=== PATIENT | male | born 1945 | race Caucasian/White ===

== ENCOUNTER 2022-05-26 07:56 | Day surgery (SDC) | payer MEDICARE, BC ==
[~2022-05-26] VITALS: Ht 167.6 cm; Wt 100.6 kg
[2022-05-26] VITALS (9 sets, daily range): BP systolic 155–177; BP diastolic 65–90
[2022-05-26] MEDS ORDERED: normal saline 1,000 ML IV SCH (08:20)
[2022-05-26] MEDS ORDERED: diphenhydrAMINE 25mg capsule PO PRN (08:20)
[2022-05-26 08:53] LABS: BASOPHILS % (AUTO) 0.6 % (0-1); EOSINOPHILS # (AUTO) 0.2 X10'3 (0-0.9); EOSINOPHILS % (AUTO) 2.9 % (0-6); HEMATOCRIT 36.4 % (42.0-52.0); HEMOGLOBIN 12.6 g/dl (14.0-17.9); LYMPHOCYTES % (AUTO) 33.4 % (21-51); MEAN CORPUSCULAR HEMOGLOBIN 33.5 PG (27.0-31.0); MEAN CORPUSCULAR HGB CONC 34.7 g/dL (33.0-36.5); MEAN CORPUSCULAR VOLUME 96.6 FL (78-98); MEAN PLATELET VOLUME 8.7 FL (7.4-10.4); MONOCYTES # (AUTO) 0.6 X10'3 (0-0.9); MONOCYTES % (AUTO) 9.8 % (2-12); NEUTROPHILS # (AUTO) 3.2 X10'3 (1.8-7.7); NEUTROPHILS % (AUTO) 53.3 % (42-75); PLATELET COUNT 211 X10'3 (140-440); RED BLOOD COUNT 3.77 X10'6 (4.70-6.10); RED CELL DISTRIBUTION WIDTH 13.5 % (11.5-14.5); WHITE BLOOD COUNT 5.9 X10'3 (4.5-11.0)
[2022-05-26 08:59] LABS: ALBUMIN 3.4 G/DL (3.4-5.0); ANION GAP 10 (8-16); BLOOD UREA NITROGEN 21 MG/DL (7-18); BUN/CREATININE RATIO 15.1 (5.4-32.0); CALCIUM 8.4 MG/DL (8.5-10.1); CHLORIDE 105 MMOL/L (99-107); CREATININE 1.39 MG/DL (0.60-1.10); GLUCOSE 96 MG/DL (70-104); MAGNESIUM 1.8 MG/DL (1.5-2.4); POTASSIUM 4.9 MMOL/L (3.5-5.1); SODIUM 140 MMOL/L (135-145); TOTAL CARBON DIOXIDE 25.3 MMOL/L (24-32); eGFR 50 ML/MIN
[2022-05-26] MEDS ORDERED: PANT40TA54 PO (09:07)
[2022-05-26] MEDS ORDERED: NIFE-34 PO (09:07)
[2022-05-26] MEDS ORDERED: ROSU10TA28 PO (09:07)
[2022-05-26] MEDS ORDERED: ASPI81TA52 PO (09:07)
[2022-05-26] MEDS ORDERED: LOSA50TA64 PO (09:07)
[2022-05-26] MEDS ORDERED: METO25TA6 PO (09:07)
[2022-05-26] MEDS ORDERED: fentaNYL/PF 50MCG/1 ML 2ML syringe ONE (11:18)
[2022-05-26] MEDS ORDERED: midazolam 1 mg/ML 2ml injection ONE (11:18)
[2022-05-26] MEDS ORDERED: iohexol 350MG/ML 100ml bottle IV ONE (11:19)
[2022-05-26] MEDS ORDERED: heparin 1,000unit/ml 10ml vial 10 ML ONE (11:19)
[2022-05-26] MEDS ORDERED: clopidogrel 300mg tablet ONE (12:36)
[2022-05-26] MEDS ORDERED: normal saline 1000ml 1,000 ML IV SCH (13:20)
[2022-05-26] MEDS ORDERED: HYDROcodone/acetaminophen 5mg/325mg tablet PO PRN (13:20)
[2022-05-26] MEDS ORDERED: proCHLORperazine 10 MG/2 ml inj IV PRN (13:20)
[2022-05-26] MEDS ORDERED: HYDROcodone/acetaminophen 10/325mg tab PO PRN (13:20)
[2022-05-26] MEDS ORDERED: ondansetron/PF 4mg/2ml inj IV PRN (13:20)
== END 2022-05-26 16:50 | disposition home or self-care (01) ==
LOC: SSTAY O 07:56
PROVIDERS: ATTEND Internal Medicine Cardiovascular Disease
DX: I70.212 Atherosclerosis of native arteries of extremities with intermittent claudication, left leg (principal); E78.5 Hyperlipidemia, unspecified; I10 Essential (primary) hypertension; K21.9 Gastro-esophageal reflux disease without esophagitis; C61 Malignant neoplasm of prostate; Z79.899 Other long term (current) drug therapy; I25.118 Atherosclerotic heart disease of native coronary artery with other forms of angina pectoris; Z95.5 Presence of coronary angioplasty implant and graft; Z98.890 Other specified postprocedural states
CPT/HCPCS: 36415; 37226; 75716; 80048; 83735; 85025; 85610; 93005; 99152; 99153; C1725; C1760; C1769; C1876; C1894; C2623; J1644; J2250; J3010; J7030; Q0163; Q9967; 36245; 36247; A4620; A6258

== ENCOUNTER 2022-06-02 06:06 | Day surgery (SDC) | payer MEDICARE, BC ==
[2022-06-02] VITALS (8 sets, daily range): BP systolic 133–143; BP diastolic 63–74
[~2022-06-02] VITALS: Ht 167.6 cm; Wt 98.3 kg
[~2022-06-02 06:06] MED LIST: ASPI81TA52 PO; LOSA50TA64 PO; METO25TA6 PO; NIFE-34 PO; PANT40TA54 PO; ROSU10TA28 PO
[2022-06-02] MEDS ORDERED: CLOP75TA33 PO (06:19)
[2022-06-02] MEDS ORDERED: normal saline 1,000 ML IV SCH (06:40)
[2022-06-02] MEDS ORDERED: diphenhydrAMINE 25mg capsule PO PRN (06:40)
[2022-06-02 07:39] LABS: BASOPHILS # (AUTO) 0.1 X10'3 (0-0.2); EOSINOPHILS # (AUTO) 0.3 X10'3 (0-0.9); EOSINOPHILS % (AUTO) 5.6 % (0-6); HEMATOCRIT 35.2 % (42.0-52.0); LYMPHOCYTES # (AUTO) 1.8 X10'3 (1.1-4.8); MEAN CORPUSCULAR HGB CONC 34.2 g/dL (33.0-36.5); MEAN CORPUSCULAR VOLUME 96.3 FL (78-98); MEAN PLATELET VOLUME 8.4 FL (7.4-10.4); MONOCYTES # (AUTO) 0.5 X10'3 (0-0.9); MONOCYTES % (AUTO) 10.2 % (2-12); NEUTROPHILS # (AUTO) 2.6 X10'3 (1.8-7.7); NEUTROPHILS % (AUTO) 49.2 % (42-75); PLATELET COUNT 198 X10'3 (140-440); RED BLOOD COUNT 3.65 X10'6 (4.70-6.10); RED CELL DISTRIBUTION WIDTH 13.3 % (11.5-14.5); WHITE BLOOD COUNT 5.2 X10'3 (4.5-11.0)
[2022-06-02 07:50] LABS: ALBUMIN 3.4 G/DL (3.4-5.0); ANION GAP 10 (8-16); BLOOD UREA NITROGEN 21 MG/DL (7-18); BUN/CREATININE RATIO 14.5 (5.4-32.0); CALCIUM 8.6 MG/DL (8.5-10.1); CHLORIDE 107 MMOL/L (99-107); CREATININE 1.45 MG/DL (0.60-1.10); GLUCOSE 101 MG/DL (70-104); MAGNESIUM 1.7 MG/DL (1.5-2.4); POTASSIUM 4.2 MMOL/L (3.5-5.1); SODIUM 142 MMOL/L (135-145); TOTAL CARBON DIOXIDE 24.7 MMOL/L (24-32); eGFR 47 ML/MIN
[2022-06-02] MEDS ORDERED: sodium bicarbonate (8.4%) inj. 150 ML in dextrose 5%-water 1,000 ML IV ONE (08:10)
--- NOTE | 2022-06-02 08:30 | NUR ---
Pt appears to be resting comfortably, eyes closed, respirations even. VS stable as charted.
[2022-06-02] MEDS ORDERED: iohexol 350MG/ML 100ml bottle IV ONE ×3 (08:50→10:59)
[2022-06-02] MEDS ORDERED: heparin 1,000unit/ml 10ml vial 10 ML ONE (08:50)
[2022-06-02] MEDS ORDERED: midazolam 1 mg/ML 2ml injection ONE ×4 (08:50→10:59)
[2022-06-02] MEDS ORDERED: fentaNYL/PF 50MCG/1 ML 2ML syringe ONE (08:50)
--- NOTE | 2022-06-02 08:52 | NUR ---
Problems reprioritized. Patient report given, questions answered & plan of care reviewed with Jaymie LUO.
[2022-06-02] MEDS ORDERED: LIDOcaine 1% 30ml preserv. free vial ONE (09:18)
[2022-06-02] MEDS ORDERED: proCHLORperazine 10 MG/2 ml inj IV PRN (11:45)
[2022-06-02] MEDS ORDERED: HYDROcodone/acetaminophen 5mg/325mg tablet PO PRN (11:45)
[2022-06-02] MEDS ORDERED: HYDROcodone/acetaminophen 10/325mg tab PO PRN (11:45)
[2022-06-02] MEDS ORDERED: normal saline 1000ml 1,000 ML IV SCH (11:45)
[2022-06-02] MEDS ORDERED: acetaminophen 325mg tablet PO PRN (11:45)
[2022-06-02] MEDS ORDERED: ondansetron/PF 4mg/2ml inj IV PRN (11:45)
--- NOTE | 2022-06-02 14:15 | NUR ---
Written and verbal DC instructions given to pt and daughter, both verbalize understanding. Pt stood at bedside, stable on feet. Pt amb in hallway, right groin site stable, no bleeding, bruising or hematoma noted. PIV DC cath intact, VSS no c/o pain. Pt able to dress self steady on feet.
--- NOTE | 2022-06-02 14:45 | NUR ---
DC to home with daughter, Transferred to private car via WC, pt able to transfer self to car.
== END 2022-06-02 14:45 | disposition home or self-care (01) ==
LOC: SSTAY O 06:06
PROVIDERS: ATTEND Internal Medicine Cardiovascular Disease
DX: I70.211 Atherosclerosis of native arteries of extremities with intermittent claudication, right leg (principal); E78.5 Hyperlipidemia, unspecified; I25.118 Atherosclerotic heart disease of native coronary artery with other forms of angina pectoris; C61 Malignant neoplasm of prostate; I10 Essential (primary) hypertension; K21.9 Gastro-esophageal reflux disease without esophagitis; Z79.899 Other long term (current) drug therapy; Z79.82 Long term (current) use of aspirin; Z87.891 Personal history of nicotine dependence; Z98.890 Other specified postprocedural states
CPT/HCPCS: 36415; 37224; 80048; 83735; 85025; 85610; 93005; 99152; 99153; C1725; C1760; C1769; C1887; C1892; C1894; J1644; J2250; J3010; J3490; J7030; J7070; Q0163; Q9967; 92920; A4620; A6258

== ENCOUNTER 2022-06-20 06:29 | Day surgery (SDC) | payer MEDICARE, BC ==
[~2022-06-20] VITALS: Ht 167.6 cm; Wt 100.2 kg
[2022-06-20] VITALS (10 sets, daily range): BP systolic 128–159; BP diastolic 52–67
[~2022-06-20 06:29] MED LIST changes: +CLOP75TA33 PO
[2022-06-20 07:40] LABS: BASOPHILS # (AUTO) 0.1 X10'3 (0-0.2); EOSINOPHILS # (AUTO) 0.3 X10'3 (0-0.9); EOSINOPHILS % (AUTO) 4.9 % (0-6); HEMOGLOBIN 12.3 g/dl (14.0-17.9); LYMPHOCYTES # (AUTO) 1.7 X10'3 (1.1-4.8); LYMPHOCYTES % (AUTO) 27.5 % (21-51); MEAN CORPUSCULAR HEMOGLOBIN 33.4 PG (27.0-31.0); MEAN CORPUSCULAR HGB CONC 34.2 g/dL (33.0-36.5); MEAN CORPUSCULAR VOLUME 97.5 FL (78-98); MEAN PLATELET VOLUME 8.5 FL (7.4-10.4); MONOCYTES # (AUTO) 0.6 X10'3 (0-0.9); MONOCYTES % (AUTO) 9.1 % (2-12); NEUTROPHILS # (AUTO) 3.6 X10'3 (1.8-7.7); NEUTROPHILS % (AUTO) 57.5 % (42-75); PLATELET COUNT 261 X10'3 (140-440); RED BLOOD COUNT 3.69 X10'6 (4.70-6.10); RED CELL DISTRIBUTION WIDTH 13.9 % (11.5-14.5); WHITE BLOOD COUNT 6.2 X10'3 (4.5-11.0)
[2022-06-20] MEDS ORDERED: normal saline 1,000 ML IV SCH (07:50)
[2022-06-20] MEDS ORDERED: diphenhydrAMINE 25mg capsule PO PRN (07:50)
[2022-06-20 07:57] LABS: ALBUMIN 3.8 G/DL (3.4-5.0); ANION GAP 11 (8-16); BLOOD UREA NITROGEN 22 MG/DL (7-18); BUN/CREATININE RATIO 14.6 (5.4-32.0); CALCIUM 8.9 MG/DL (8.5-10.1); CHLORIDE 106 MMOL/L (99-107); CREATININE 1.51 MG/DL (0.60-1.10); GLUCOSE 95 MG/DL (70-104); MAGNESIUM 1.7 MG/DL (1.5-2.4); POTASSIUM 4.7 MMOL/L (3.5-5.1); SODIUM 143 MMOL/L (135-145); TOTAL CARBON DIOXIDE 25.8 MMOL/L (24-32); eGFR 45 ML/MIN
[2022-06-20] MEDS ORDERED: iohexol 350MG/ML 100ml bottle IV ONE (08:37)
[2022-06-20] MEDS ORDERED: midazolam 1 mg/ML 2ml injection ONE ×2 (08:37→09:26)
[2022-06-20] MEDS ORDERED: heparin 1,000unit/ml 10ml vial 10 ML ONE (08:37)
[2022-06-20] MEDS ORDERED: fentaNYL/PF 50MCG/1 ML 2ML syringe ONE ×2 (08:37→09:44)
[2022-06-20] MEDS ORDERED: LIDOcaine 1% 30ml preserv. free vial ONE (08:37)
[2022-06-20] MEDS ORDERED: sodium bicarbonate (8.4%) inj. 150 ML in dextrose 5%-water 1,000 ML IV ONE (09:15)
--- NOTE | 2022-06-20 09:15 | NUR ---
Pt leaving unit for procedure. Attending nurse, Sasha RN received Na Bi[employer] gtt as pt was leaving unit, med to be started in the label operator. Pt left with appropriate tubing and solution.
[2022-06-20] MEDS ORDERED: clopidogrel 300mg tablet ONE (10:45)
--- NOTE | 2022-06-20 11:00 | NUR ---
Pts fluids infusing as ordered upon arrival.
[2022-06-20] MEDS ORDERED: HYDROcodone/acetaminophen 5mg/325mg tablet PO PRN (11:20)
[2022-06-20] MEDS ORDERED: HYDROcodone/acetaminophen 10/325mg tab PO PRN (11:20)
[2022-06-20] MEDS ORDERED: ondansetron/PF 4mg/2ml inj IV PRN (11:20)
[2022-06-20] MEDS ORDERED: proCHLORperazine 10 MG/2 ml inj IV PRN (11:20)
[2022-06-20] MEDS ORDERED: normal saline 1000ml 1,000 ML IV SCH (11:20)
--- NOTE | 2022-06-20 11:44 | NUR ---
Spoke with son as per pt request. Son states he will be able to supervisor picking crew pt at 1600 and will be outside.
--- NOTE | 2022-06-20 13:20 | NUR ---
Pt ate 100% of breakfast tray. 450ml oral fluid intake. Pt site stable. Drsg CD&I, no s/s of bleeding or infection. Pt is laying supine in bed, watching TV. Denies pain.
--- NOTE | 2022-06-20 15:12 | NUR ---
Pt has had 50ml clear, yellow void. Pt states he feels like "I still need to go". Pt refuses straight cath at this time. States, "I can wait until I can walk to the bathroom." Addendum: 06/20/22 at 1514 by Leidy Lowe RN Pt does have urinal at the bedside.
== END 2022-06-20 16:00 | disposition home or self-care (01) ==
LOC: SSTAY O 06:29
PROVIDERS: ATTEND Internal Medicine Cardiovascular Disease
DX: I70.222 Atherosclerosis of native arteries of extremities with rest pain, left leg (principal); E78.5 Hyperlipidemia, unspecified; Z79.899 Other long term (current) drug therapy; Z98.890 Other specified postprocedural states; I25.118 Atherosclerotic heart disease of native coronary artery with other forms of angina pectoris; I10 Essential (primary) hypertension; K21.9 Gastro-esophageal reflux disease without esophagitis; C61 Malignant neoplasm of prostate; Z86.73 Personal history of transient ischemic attack (TIA), and cerebral infarction without residual deficits; Z82.49 Family history of ischemic heart disease and other diseases of the circulatory system; Z82.3 Family history of stroke
CPT/HCPCS: 36415; 37226; 75710; 80048; 83735; 85025; 85610; 93005; 99152; 99153; C1725; C1760; C1769; C1876; C1894; C2623; J1644; J2250; J3010; J3490; J7030; Q0163; Q9967; A4620; A4663; A6258

== ENCOUNTER 2024-09-19 09:33 | Day surgery (SDC) | payer MEDICARE, BC ==
[2024-09-19] VITALS (9 sets, daily range): BP systolic 130–163; BP diastolic 45–79; PULSE 48–62; RESP 10–12; TEMP 98.2; O2SAT 96–99
[~2024-09-19] VITALS: Ht 170.2 cm; Wt 96.6 kg
[~2024-09-19 09:33] MED LIST changes: -ROSU10TA28 PO; +ROSU10TA72 PO
[2024-09-19 10:39] LABS: BASOPHILS # (AUTO) 0.1 X10'3 (0-0.2); BASOPHILS % (AUTO) 1.2 % (0-1); EOSINOPHILS # (AUTO) 0.3 X10'3 (0-0.9); EOSINOPHILS % (AUTO) 4.2 % (0-6); HEMATOCRIT 42.1 % (42.0-52.0); HEMOGLOBIN 14.2 g/dl (14.0-17.9); LYMPHOCYTES # (AUTO) 1.7 X10'3 (1.1-4.8); LYMPHOCYTES % (AUTO) 28.5 % (21-51); MEAN CORPUSCULAR HEMOGLOBIN 33.1 PG (27.0-31.0); MEAN CORPUSCULAR HGB CONC 33.7 g/dL (33.0-36.5); MEAN CORPUSCULAR VOLUME 98.4 FL (78-98); MONOCYTES # (AUTO) 0.5 X10'3 (0-0.9); MONOCYTES % (AUTO) 8.7 % (2-12); NEUTROPHILS # (AUTO) 3.5 X10'3 (1.8-7.7); NEUTROPHILS % (AUTO) 57.4 % (42-75); PLATELET COUNT 254 X10'3 (140-440); RED BLOOD COUNT 4.28 X10'6 (4.70-6.10); RED CELL DISTRIBUTION WIDTH 13.4 % (11.5-14.5)
[2024-09-19] MEDS ORDERED: ROSU20TA98 PO (10:40)
[2024-09-19 10:55] LABS: ALBUMIN 3.9 G/DL (3.4-5.0); ANION GAP 10 (8-16); BLOOD UREA NITROGEN 25 MG/DL (7-18); BUN/CREATININE RATIO 18.4 (10.0-20.0); CALCIUM 9.1 MG/DL (8.5-10.1); CHLORIDE 105 MMOL/L (99-107); CREATININE 1.36 MG/DL (0.60-1.10); GLUCOSE 87 MG/DL (70-104); MAGNESIUM 2.2 MG/DL (1.5-2.4); POTASSIUM 4.6 MMOL/L (3.5-5.1); SODIUM 142 MMOL/L (135-145); TOTAL CARBON DIOXIDE 27.3 MMOL/L (24-32); eGFR 50 ML/MIN
[2024-09-19 11:30] LABS: PROTHROMBIN TIME 10.8 SECONDS (9.0-12.0)
[2024-09-19] MEDS: diphenhydrAMINE 25mg capsule PO PRN (11:51)
[2024-09-19] MEDS: sodium bicarbonate 1meq/ml syr 150 ML in dextrose 5%-water 1,000 ML IV ONE (11:51)
[2024-09-19] MEDS: normal saline 1,000 ML IV SCH (11:52)
[2024-09-19] MEDS ORDERED: LIDOcaine 1% 30ml preserv. free vial ONE (14:33)
[2024-09-19] MEDS ORDERED: midazolam 1 mg/ML 2ml injection ONE ×2 (14:33→15:46)
[2024-09-19] MEDS ORDERED: heparin 1,000unit/ml 10ml vial 10 ML ONE (14:33)
[2024-09-19] MEDS ORDERED: iohexol 350MG/ML 100ml bottle IV ONE (14:33)
[2024-09-19] MEDS ORDERED: fentaNYL/PF 50MCG/1 ML 2ML syringe ONE ×2 (14:33→15:46)
[2024-09-19] MEDS ORDERED: ondansetron/PF 4mg/2ml inj IV PRN (17:00)
[2024-09-19] MEDS ORDERED: HYDROcodone/acetaminophen 5mg/325mg tablet PO PRN (17:00)
[2024-09-19] MEDS ORDERED: HYDROcodone/acetaminophen 10/325mg tab PO PRN (17:00)
[2024-09-19] MEDS ORDERED: proCHLORperazine 10 MG/2 ml inj IV PRN (17:00)
== END 2024-09-19 19:25 | disposition home or self-care (01) ==
LOC: SSTAY O 09:33
PROVIDERS: ATTEND Internal Medicine Cardiovascular Disease
DX: I70.213 Atherosclerosis of native arteries of extremities with intermittent claudication, bilateral legs (principal); I25.2 Old myocardial infarction; R94.31 Abnormal electrocardiogram [ECG] [EKG]; I25.118 Atherosclerotic heart disease of native coronary artery with other forms of angina pectoris; I10 Essential (primary) hypertension; E78.5 Hyperlipidemia, unspecified; K21.9 Gastro-esophageal reflux disease without esophagitis; Z87.891 Personal history of nicotine dependence; Z85.46 Personal history of malignant neoplasm of prostate; Z95.5 Presence of coronary angioplasty implant and graft
CPT/HCPCS: 36247; 36415; 75716; 80048; 83735; 85025; 85610; 93005; A6258; C1769; C1894; J1644; J2003; J2250; J3010; J3490; J7030; J7070; Q0163; Q9967; Z7610; 75630; 99152; 99153

== ENCOUNTER 2025-04-28 07:58 | Day surgery (SDC) | payer MEDICARE, BC ==
[2025-04-28] VITALS (12 sets, daily range): BP systolic 114–149; BP diastolic 57–67; PULSE 48–56; RESP 10–14; TEMP 96.8; O2SAT 95–99
[~2025-04-28] VITALS: Ht 167.6 cm; Wt 97.5 kg
[~2025-04-28 07:58] MED LIST changes: -ROSU10TA72 PO; +ROSU20TA98 PO
--- NOTE | 2025-04-28 08:39 | ELECTROCARDIOGRAPH REPORT ---
[facility] Test Date: 2025-04-28 Test Time: 08:37:32 Pat Name: ARAM THEODORE Department: PSYCHIATRIC-SSTAY O Room: Gender: M Palliative Care Nurse: SS : 1945 Requested By: HILARIA BRYAN Order Number: [id number] Reading MD: Dr. SHELIA Flores Measurements Intervals Bronson Rate: 55 P: -78 IA: 364 QRS: 1 QRSD: 98 T: 37 QT: 438 QTc: 419 Interpretive Statements Sinus or ectopic atrial rhythm Prolonged IA interval Electronically Signed On 04-28-2025 13:45:[address] SHELIA Flores Please click the below link to view image of tracing.
[2025-04-28 09:00] LABS: BASOPHILS # (AUTO) 0.1 X10'3 (0-0.2); EOSINOPHILS # (AUTO) 0.3 X10'3 (0-0.9); EOSINOPHILS % (AUTO) 4.6 % (0-6); HEMATOCRIT 38.3 % (42.0-52.0); HEMOGLOBIN 13.1 g/dl (14.0-17.9); LYMPHOCYTES # (AUTO) 1.9 X10'3 (1.1-4.8); LYMPHOCYTES % (AUTO) 32.8 % (21-51); MEAN CORPUSCULAR HEMOGLOBIN 32.7 PG (27.0-31.0); MEAN CORPUSCULAR HGB CONC 34.1 g/dL (33.0-36.5); MEAN CORPUSCULAR VOLUME 95.9 FL (78-98); MEAN PLATELET VOLUME 8.6 FL (7.4-10.4); MONOCYTES # (AUTO) 0.6 X10'3 (0-0.9); MONOCYTES % (AUTO) 11.1 % (2-12); NEUTROPHILS # (AUTO) 2.9 X10'3 (1.8-7.7); NEUTROPHILS % (AUTO) 50.5 % (42-75); PLATELET COUNT 176 X10'3 (140-440); RED BLOOD COUNT 3.99 X10'6 (4.70-6.10); RED CELL DISTRIBUTION WIDTH 13.3 % (11.5-14.5); WHITE BLOOD COUNT 5.7 X10'3 (4.5-11.0)
[2025-04-28 09:16] LABS: ALBUMIN 3.5 G/DL (3.4-5.0); BLOOD UREA NITROGEN 29 MG/DL (7-18); BUN/CREATININE RATIO 19.9 (10.0-20.0); CALCIUM 8.5 MG/DL (8.5-10.1); CHLORIDE 105 MMOL/L (99-107); CREATININE 1.46 MG/DL (0.60-1.10); GLUCOSE 96 MG/DL (70-104); INR 1.1 INR; POTASSIUM 4.5 MMOL/L (3.5-5.1); PROTHROMBIN TIME 10.8 SECONDS (9.0-12.0); eCRCL 36 ML/MIN; eGFR 46 ML/MIN
[2025-04-28 09:21] LABS: ANION GAP 6 (8-16); SODIUM 136 MMOL/L (135-145)
[2025-04-28] MEDS: sodium bicarbonate 1meq/ml syr 150 ML in dextrose 5%-water 1,000 ML IV ONE (11:30)
[2025-04-28] MEDS: normal saline 1,000 ML IV SCH (11:30)
[2025-04-28] MEDS: diphenhydrAMINE 25mg capsule PO PRN (11:34)
[2025-04-28] MEDS ORDERED: heparin 1,000unit/ml 10ml vial 10 ML ONE (12:31)
[2025-04-28] MEDS ORDERED: LIDOcaine 1% 30ml preserv. free vial ONE (12:31)
[2025-04-28] MEDS ORDERED: iohexol 350MG/ML 100ml bottle IV ONE (12:31)
[2025-04-28] MEDS ORDERED: fentaNYL/PF 50MCG/1 ML 2ML syringe ONE (12:31)
[2025-04-28] MEDS ORDERED: midazolam 1 mg/ML 2ml injection ONE (13:09)
[2025-04-28] MEDS ORDERED: normal saline 1000ml 1,000 ML IV SCH (14:20)
[2025-04-28] MEDS ORDERED: ondansetron/PF 4mg/2ml inj IV PRN (14:20)
[2025-04-28] MEDS ORDERED: proCHLORperazine 10 MG/2 ml inj IV PRN (14:25)
[2025-04-28] MEDS ORDERED: HYDROcodone/acetaminophen 10/325mg tab PO PRN (14:25)
[2025-04-28] MEDS ORDERED: HYDROcodone/acetaminophen 5mg/325mg tablet PO PRN (14:25)
[2025-04-28] MEDS ORDERED: SODIUM BICARBONATE 150MEQ IN D5W 1,000 ML IV SCH (14:30)
--- NOTE | 2025-05-08 18:58 | CARDIOLOGY REPORT ---
DATE OF SERVICE: 04/28/2025 DICTATING PHYSICIAN: HILARIA BRYAN DO CARDIAC CATHETERIZATION REPORT PROCEDURES PERFORMED: * Selective right brachiocephalic and carotid arteriography. * Selective left carotid angiography. * 30 minutes conscious sedation supervision. * Percutaneous arteriotomy closure (Perclose). HISTORY: This 79-year-old man has a history of coronary artery disease. He has had carotid ultrasonography in 07/2024. He had an accelerated velocity in the ICA up to 255cm/sec and an estimated stenosis at the origin of the vessel of 70%. The left internal carotid velocity was 130cm/sec and he was thought to have a stenosis in the range of 50-70%. DESCRIPTION OF PROCEDURE: The patient was sedated with fentanyl and Versed. He was then prepared and draped in the usual manner. The right inguinal area was infiltrated with 1% lidocaine. Using a micropuncture set and a Seldinger technique, a 7-Trinidadian sheath was placed in the common femoral artery. 3,000 units of heparin were given. Using a right Mirela catheter, the right brachiocephalic artery was easily engaged and using hand injections, the brachiocephalic trunk; the common, internal carotid and external carotid arteries were opacified and recorded cineangiographically in multiple projections. The right Mirela catheter was moved over to the left carotid artery. Once again using hand injections and multiple projections, opacification of the common, internal and external carotid arteries was accomplished and recorded cineangiographically. The arterial sheath was removed and the arterial access site was Perclosed. RESULTS: Right side: * The brachiocephalic trunk was unobstructed. *The common carotid was unobstructed. *The internal carotid artery appeared to be narrowed by about 60%, but there was a marked lucency just above the area of stenosis, suggesting a heavy plaque burden in this location. *The external carotid artery was patent and unobstructed. Left side: * The common carotid artery was patent and unobstructed. * The internal carotid artery was patent and unobstructed. * The external carotid was also patent and unobstructed. CONCLUSIONS: * Based on this angiography and the increased velocity involving the origin of the right internal carotid artery, an estimated stenosis of about 70% appears to be appropriate. * There was no obstructive disease in the left carotid system. HILARIA BRYAN DO TID: [id number] RECEIPT: [id number] [facility]
== END 2025-04-28 16:50 | disposition home or self-care (01) ==
LOC: SSTAY O 07:58
PROVIDERS: ATTEND Internal Medicine Cardiovascular Disease
DX: I65.21 Occlusion and stenosis of right carotid artery (principal); I73.9 Peripheral vascular disease, unspecified; E78.5 Hyperlipidemia, unspecified; I25.118 Atherosclerotic heart disease of native coronary artery with other forms of angina pectoris; C61 Malignant neoplasm of prostate; I25.2 Old myocardial infarction; I44.30 Unspecified atrioventricular block; I10 Essential (primary) hypertension; K21.9 Gastro-esophageal reflux disease without esophagitis; Z87.891 Personal history of nicotine dependence; Z79.899 Other long term (current) drug therapy; Z98.890 Other specified postprocedural states; Z82.49 Family history of ischemic heart disease and other diseases of the circulatory system; Z82.3 Family history of stroke
CPT/HCPCS: 36223; 36415; 80048; 83735; 85025; 85610; 93005; 99152; C1760; C1894; J1644; J2003; J2250; J3010; J3490; J7030; J7070; Q0163; Q9967; Z7610; 36216; 36222